=== PATIENT | female | born 1970 | race Caucasian/White ===

== ENCOUNTER → 2021-10-24 | Outpatient (CLI) | payer BC ==
--- NOTE | 2021-10-24 11:05 | Diagnostic Imaging Report ---
INDICATION: Routine screening. COMPARISON: No prior mammograms are available for comparison. TECHNIQUE: 2D and 3D bilateral screening mammography was performed with CAD. FINDINGS: Both breasts are heterogeneously dense, limiting the sensitivity of mammography. There is a density in the slightly medial left breast at posterior depth seen on the CC view which is indeterminate. This may represent fibroglandular tissue but additional views are recommended. No corresponding density on the MLO view is identified. The right breast is unremarkable. The axillae are unremarkable. There are no malignant-appearing microcalcifications. IMPRESSION: Left breast density. Additional views are recommended for further evaluation. ACR BI-RADS Category 0: Incomplete. (Needs additional imaging evaluation). Result letter will be mailed to the patient. Note: At least 10% of breast cancer is not imaged by mammography. Dictated by: Dictated on workstation # [id number]
== END ==
LOC: RAD 08:15
PROVIDERS: ATTEND Physician Assistant
DX: Z12.31 Encounter for screening mammogram for malignant neoplasm of breast (principal)
CPT/HCPCS: 77063; 77067

== ENCOUNTER 2021-11-03 05:32 | Outpatient (RCR) | payer BC ==
[~2021-11-03] VITALS: Ht 175.3 cm; Wt 80.4 kg
[2021-11-03] MEDS ORDERED: PROP60TA17 PO (15:57)
[2021-11-03] MEDS ORDERED: TIZA-186 PO (15:57)
[2021-11-03] MEDS ORDERED: DICL50TA4 PO (15:57)
[2021-11-03] MEDS ORDERED: FLUO40CA PO (15:57)
[2021-11-03] MEDS ORDERED: LORA10TA7 PO (15:57)
[2021-11-03] MEDS ORDERED: PANT40TA52 PO (15:57)
[2021-11-03] MEDS ORDERED: MV-M1TAB20 PO (15:57)
[2021-11-03] MEDS ORDERED: ASPI-999 PO (15:57)
[2021-11-03] MEDS ORDERED: GLUC-144 PO (15:57)
[2021-11-03] MEDS ORDERED: CHLO25TA22 PO (15:57)
[2021-11-03] MEDS ORDERED: FENO145T26 PO (15:57)
[2021-11-03] MEDS ORDERED: ATOR10TA66 PO (15:57)
[2021-11-03] MEDS ORDERED: FAMO-144 PO (15:57)
[2021-11-03] MEDS ORDERED: ESTR10TA9 PO (15:57)
[2021-11-03] MEDS ORDERED: ASCO1TAB42 PO (15:57)
[2021-11-03] MEDS ORDERED: NITR0.4T39 SL (15:57)
[2021-11-03] MEDS ORDERED: RT-ALBUINH INH (15:57)
== END 2021-11-03 16:29 | disposition home or self-care (01) ==
LOC: PREOP 05:32
PROVIDERS: ATTEND Surgery
DX: Z01.818 Encounter for other preprocedural examination (principal)

== ENCOUNTER 2021-11-11 08:24 | Day surgery (SDC) | payer BC ==
[~2021-11-11] VITALS: Ht 175 cm; Wt 80.4 kg
[~2021-11-11 08:24] MED LIST: ASCO1TAB42 PO; ASPI-999 PO; ATOR10TA66 PO; CHLO25TA22 PO; DICL50TA4 PO; ESTR10TA9 PO; FAMO-144 PO; FENO145T26 PO; FLUO40CA PO; GLUC-144 PO; LORA10TA7 PO; MV-M1TAB20 PO; NITR0.4T39 SL; PANT40TA52 PO; PROP60TA17 PO; RT-ALBUINH INH; TIZA-186 PO
[2021-11-11] MEDS ORDERED: LACTATED RINGERS 1,000 ML IV STA (08:26)
[2021-11-11] MEDS ORDERED: LACTATED RINGERS 1,000 ML IV ONE (08:29)
[2021-11-11] MEDS ORDERED: HURRICAINE EXT TUBE (BENZOCAINE) XX PRN (08:30)
[2021-11-11 08:50] VITALS: BP 140/88
--- NOTE | 2021-11-11 08:58 | Progress Note-Pre Operative ---
Pre-Operative Progress Note H&P Reviewed The H&P was reviewed, patient examined and no changes noted. Date Seen by Provider: Nov 11, 2021 Time Seen by Provider: 08:58 Date H&P Reviewed: Nov 11, 2021 Time H&P Reviewed: 08:58 Pre-Operative Diagnosis: screening colonoscopy, gerd SHANNA RODNEY DO Nov 11, 2021 08:58
[2021-11-11] MEDS ORDERED: PROPOFOL INJECTION 50 ML IV ONE (09:30)
[2021-11-11] MEDS ORDERED: MIDAZOLAM 2 MG/2 ML (VERSED) VIAL ONE (09:30)
[2021-11-11 10:20] VITALS: BP 115/57
--- NOTE | 2021-11-11 10:23 | Progress Note-Post Operative ---
Post-Operative Progess Note Surgeon (s)/Design Director (s) Surgeon SHANNA RODNEY DO Design Director: na Pre-Operative Diagnosis screening colonoscopy, gerd Post-Operative Diagnosis gastritis, normal colon Procedure & Operative Findings Date of Procedure 11/11/21 Procedure Performed/Findings egd c biopsies, colonoscopy Anesthesia Type per [facility] Estimated Blood Loss Estimated blood loss (mL): none Specimens/Packing Specimens Removed antrum, ge SHANNA RODNEY DO Nov 11, 2021 10:23
--- NOTE | 2021-11-11 10:24 | Discharge Inst-Simple/Standard ---
Discharge Inst-Standard Patient Instructions/Follow Up Plan of Care/Instructions/FU: 2 weeks Marge Activity as Tolerated: Yes Discharge Diet: Regular Diet SHANNA RODNEY DO Nov 11, 2021 10:24
[2021-11-11 10:25] VITALS: BP 99/61
[2021-11-11 10:45] VITALS: BP 107/55
[2021-11-11 10:53] VITALS: BP 107/55
--- NOTE | 2021-11-11 14:58 | Anesthesia-General Post-Op ---
MAC Patient Condition Mental Status/LOC: Same as Preop Cardiovascular: Satisfactory Nausea/Vomiting: Absent Respiratory: Satisfactory Pain: Controlled Complications: Absent Post Op Complications Complications None Follow Up Care/Instructions Patient Instructions None needed. Anesthesiology Discharge Order Discharge Order Patient was doing well this morning after the procedure, no complaints, stable vital signs, no apparent adverse anesthesia problems. DIANA SANDERS DO Nov 11, 2021 14:58
--- NOTE | 2021-11-11 15:16 | OPERATIVE REPORT ---
DATE OF SERVICE: 11/11/2021 PREOPERATIVE DIAGNOSIS: Screening colonoscopy and gastroesophageal reflux disease. POSTOPERATIVE DIAGNOSES: Slight gastritis, normal colon. PROCEDURE: EGD with biopsies, colonoscopy. SURGEON: Shanna Bird DO ANESTHESIA: Per MDA. ESTIMATED BLOOD LOSS: None. COMPLICATIONS: None. INDICATIONS: The patient is a 51-year-old female with GERD symptoms and needing screening colonoscopy. The patient understands risks and benefits and wishes to proceed. Consent was signed in the chart. DESCRIPTION OF PROCEDURE: The patient was taken to the endoscopy suite, placed in the left lateral recumbent position. Timeout was performed. Scope was inserted in mouth, down the esophagus, stomach and into the duodenum without difficulty. No polyps, masses or ulcerations in the duodenum. Scope was slowly retracted back into the stomach where it was further insufflated. Changes of gastritis present within the antrum. Biopsy was obtained. Scope was retroflexed noting a small hiatal hernia, no other pathology. Scope was returned to its normal position, slowly withdrawn to the distal esophagus. No polyps, masses or ulcerations. Biopsy of the GE junction was obtained. Scope was slowly retracted back until completely removed. The patient then had digital rectal exam performed. No palpable polyps, masses or ulcerations. Scope was inserted in the rectum and advanced all the way to cecum with minimal difficulty. Prep was adequate. Scope was then slowly retracted back. No polyps, masses or ulcerations within the cecum, ascending, transverse, descending and sigmoid colon. Once in the rectum, scope was retroflexed noting no other pathology. Scope was returned to its normal position, slowly withdrawn until completely removed. The patient tolerated the procedure well without any complications. She was taken to recovery room in stable condition. RECOMMENDATIONS: The patient will need repeat colonoscopy in 10 years unless family history of colon cancer, which then be 5 years. Any issues before that be seen at that time. We will continue on current medications. Await biopsy results. Job ID: [id number] DocumentID: [id number] Dictated Date: 11/11/2021 10:27:34 General Repair Mechanic Date: 11/11/2021 13:24:46 Dictated By: SHANNA BIRD DO
== END 2021-11-11 10:53 | disposition home or self-care (01) ==
LOC: ENDO 08:24
PROVIDERS: ATTEND Surgery
DX: Z12.11 Encounter for screening for malignant neoplasm of colon (principal); K29.70 Gastritis, unspecified, without bleeding; K21.9 Gastro-esophageal reflux disease without esophagitis; F17.210 Nicotine dependence, cigarettes, uncomplicated; Z79.82 Long term (current) use of aspirin

== ENCOUNTER → 2021-12-01 | Outpatient (CLI) | payer BC ==
--- NOTE | 2021-12-01 17:08 | Diagnostic Imaging Report ---
INDICATION: Left breast density. Patient presents for additional views. Correlation is made with screening study from 10/24/2021. Unilateral left 2-D and 3-D diagnostic mammography was performed. This includes spot compression CC, rolled CC as well as 90 degrees lateral views. Additional views fail to demonstrate a discrete mass. Density noted in the medial and posterior left breast appears to resolve after additional views. This most likely represent superimposed tissue. IMPRESSION: BI-RADS 0 Additional views fail to demonstrate a discrete mass. Even so, further evaluation with ultrasound is recommended will be performed today. ACR BI-RADS Category 0: Incomplete. (Needs additional imaging evaluation). Result letter will be mailed to the patient. Note: At least 10% of breast cancer is not imaged by mammography. Dictated by: Dictated on workstation # [id number]
--- NOTE | 2021-12-01 17:09 | Diagnostic Imaging Report ---
INDICATION: Left breast density. Correlation is made with diagnostic mammogram earlier the same day as well as screening mammogram from 10/24/2021. Sonographic interrogation of the medial left breast was performed. No solid or cystic masses detected. No sonographic abnormality is identified. IMPRESSION: BI-RADS Category 1 No sonographic abnormality is detected. The patient may return to routine annual screening mammography. ACR BI-RADS Category 1: Negative. Result letter will be mailed to the patient. Note: At least 10% of breast cancer is not imaged by mammography. Dictated by: Dictated on workstation # [id number]
== END ==
LOC: RAD 14:15
PROVIDERS: ATTEND Physician Assistant
DX: R92.2 Inconclusive mammogram (principal)
CPT/HCPCS: 76642; 77065; G0279

== ENCOUNTER → 2021-12-17 | Outpatient (CLI) | payer BC ==
[~2021-12-17] VITALS: Ht 175 cm; Wt 80.0 kg
[~2021-12-17] MED LIST changes: +CATHETER FLUSH 10 ML SYR IVP PRN
[2021-12-17 13:20] VITALS: BP 143/81
--- NOTE | 2021-12-17 15:33 | Cardiology Stress Test Report ---
Stress Test Report Date of Procedure/Referring: Date of Procedure: Dec 17, 2021 PCP Jose Zarate MD Admitting Physician Indications: HTN Baseline Heart Rate: 63 Baseline Blood Pressure: Blood Pressure Systolic: 143 Blood Pressure Diastolic: 81 Vital Signs Date Time Temp Pulse Resp B/P (MAP) Pulse Ox O2 Delivery O2 Flow Rate FiO2 12/17/21 13:20 61 143/81 (101) Baseline Vital Signs Vital Signs Date Time Temp Pulse Resp B/P (MAP) Pulse Ox O2 Delivery O2 Flow Rate FiO2 12/17/21 13:20 61 143/81 (101) Baseline EKG: Baseline EKG: NSR Summary: After explaining the procedure and details to the patient, she signed the consent and was brought to the stress nuclear laboratory. Patient exercised on standard Drew protocol, EKG, heart rate and blood pressure were monitored continuously, resting and stress doses of radio tracer were injected, imaging was acquired and reviewed in the short axis, horizontal long axis and vertical long axis views Patient was able to exercise for a total of 4 minutes on Drew protocol, METs 5.8 Maximum heart rate 146 Maximum blood pressure 170/85 Stress EKG, Minimal nondiagnostic changes Recovery EKG, Return to baseline TID: 0.92 SSS: 4 SDS: 4 EF: 69 Conclusion: 1. Fair exercise tolerance for a total of 4 minutes on standard Drew protocol, 5.8 METS achieving 86% of maximal expected heart rate 2. Appropriate heart rate and blood pressure response to exercise return to baseline during recovery 3. Mild reversible ischemia involving the apex and anteroapical segment 4. Normal left ventricular size, EF 69% JOSE ZARATE MD Dec 17, 2021 15:33
== END ==
LOC: CARD 11:00
PROVIDERS: ATTEND Internal Medicine Cardiovascular Disease
DX: I10 Essential (primary) hypertension (principal); I25.10 Atherosclerotic heart disease of native coronary artery without angina pectoris
CPT/HCPCS: 78452; 93017; 93306; A9502

== ENCOUNTER 2021-12-24 11:55 | Day surgery (SDC) | payer BC ==
[~2021-12-24] VITALS: Ht 175 cm; Wt 76.9 kg
[~2021-12-24 11:55] MED LIST changes: -CATHETER FLUSH 10 ML SYR IVP PRN
[2021-12-24] MEDS ORDERED: NS IV 1000 ML 1,000 ML ONE (11:58)
[2021-12-24] MEDS ORDERED: HEParin (CATH LAB) 2,000 ML IV ONE (11:58)
[2021-12-24] MEDS ORDERED: LIDOCAINE 1% INJ 20 ML VIAL ONE (11:58)
[2021-12-24] MEDS ORDERED: NS IV 1000 ML 1,000 ML IV SCH (12:00)
[2021-12-24 12:07] VITALS: BP 143/82
[2021-12-24 12:20] LABS: BILIRUBIN,URINE NEGATIVE (NEGATIVE); CLARITY,URINE CLEAR; COLOR,URINE YELLOW; GLUCOSE, URINE (UA) NEGATIVE (NEGATIVE); KETONES,URINE NEGATIVE (NEGATIVE); LEUKOCYTE ESTERASE ,URINE NEGATIVE (NEGATIVE); NITRITE,URINE NEGATIVE (NEGATIVE); PROTEIN,URINE NEGATIVE (NEGATIVE)
[2021-12-24 12:21] LABS: HEMATOCRIT 39 % (35-52); HEMOGLOBIN 12.9 g/dL (11.5-16.0); MEAN CORPUSCULAR HEMOGLOBIN 31 pg (25-34); MEAN CORPUSCULAR HGB CONC 33 g/dL (32-36); MEAN CORPUSCULAR VOLUME 94 fL (80-99); MEAN PLATELET VOLUME 10.2 fL (9.0-12.2); PLATELET COUNT 379 10^3/uL (130-400); WHITE BLOOD COUNT 8.4 10^3/uL (4.3-11.0)
--- NOTE | 2021-12-24 12:26 | Diagnostic Imaging Report ---
INDICATION: Abnormal stress test, coronary artery disease. Frontal chest obtained at 12:08 p.m. FINDINGS: Heart and mediastinal silhouette are normal in appearance. The lungs are clear. There is no pneumothorax or pleural fluid. IMPRESSION: Negative chest. Dictated by: Dictated on workstation # [id number]
[2021-12-24] MEDS ORDERED: VERAPAMIL 5 MG/2 ML (CALAN) VIAL IV ONE (12:29)
[2021-12-24] MEDS ORDERED: MIDAZOLAM 5 MG/5 ML (VERSED) VIAL ONE (12:29)
[2021-12-24] MEDS ORDERED: fentaNYL INJ 100 MCG/2 ML AMP ONE (12:29)
[2021-12-24] MEDS ORDERED: HEParin 1000 UNIT/ML (10ML VIAL) FOR BOLUS ONE (12:30)
[2021-12-24] MEDS ORDERED: NITRO DRIP 25000 MCG/D5W 250 ML IV ONE (12:30)
[2021-12-24 12:34] LABS: RBC,URINE RARE /HPF
[2021-12-24 12:35] LABS: BACTERIA,URINE MODERATE /HPF
[2021-12-24 12:39] LABS: ALANINE AMINOTRANSFERASE 35 U/L (0-55); ALBUMIN 4.6 GM/DL (3.2-4.5); ALKALINE PHOSPHATASE 60 U/L (40-136); BILIRUBIN,TOTAL 0.4 MG/DL (0.1-1.0); BUN/CREATININE RATIO 22; CALCIUM 10.3 MG/DL (8.5-10.1); CARBON DIOXIDE 27 MMOL/L (21-32); CHLORIDE 103 MMOL/L (98-107); CHOLESTEROL 314 MG/DL (< 200); CREATININE SERUM 0.85 MG/DL (0.60-1.30); GFR ESTIMATED 82; GLUCOSE 93 MG/DL (70-105); HDL CHOLESTEROL 38 MG/DL (40-60); POTASSIUM 4.2 MMOL/L (3.6-5.0); SODIUM 139 MMOL/L (135-145); TOTAL PROTEIN 7.6 GM/DL (6.4-8.2); TRIGLYCERIDES 271 MG/DL (<150); VLDL CHOLESTEROL 54 MG/DL (5-40)
[2021-12-24 12:46] LABS: INR 0.9 (0.8-1.4); PROTHROMBIN TIME PATIENT 12.9 SEC (12.2-14.7)
[2021-12-24] MEDS ORDERED: CALC-250 PO (12:56)
[2021-12-24] MEDS ORDERED: PROP80TA3 PO (12:56)
[2021-12-24] MEDS ORDERED: FLUO20CA48 PO (12:56)
[2021-12-24] MEDS ORDERED: FAMO20TA3 PO (12:56)
[2021-12-24] MEDS ORDERED: FLUT9.9S NS (12:56)
[2021-12-24] MEDS ORDERED: ESTR1TAB27 PO (12:56)
[2021-12-24] MEDS ORDERED: CNC1KV IM (12:56)
[2021-12-24] MEDS ORDERED: LISI20TA26 PO (12:56)
[2021-12-24] MEDS ORDERED: ASPI-1238 PO (12:56)
[2021-12-24] MEDS ORDERED: SUCR1TAB PO (12:56)
[2021-12-24] MEDS ORDERED: MIDAZOLAM 2 MG/2 ML (VERSED) VIAL ONE (13:13)
[2021-12-24] MEDS ORDERED: ASPIRIN 325 MG (5 GR) TABLET ONE (13:40)
[2021-12-24] MEDS ORDERED: TICAGRELOR 90 MG TABLET (BRILINTA) PO ONE (13:40)
--- NOTE | 2021-12-24 13:40 | Conscious Sedation/ASA ---
Conscious Sedation Pre-Proced Time 13:40 ASA Score 3 For ASA 3 and 4: Consider anesthesia and medical clearance. Also, for patients with a history of failed moderate sedation consider anesthesia. Airway Lungs Heart ASA score ASA 1: a normal healthy patient ASA 2: a patient with a mild systemic disease (mid diabetes, controlled hypertension, obesity x ASA 3: a patient with a severe systemic disease that limits activity (angina, COPD, prior Myocardial infarction) ASA 4: a patient with an incapacitating disease that is a constant threat to life (CHF, renal failure) ASA 5: a moribund patient not expected to survive 24 hrs. (ruptured aneurysm) ASA 6: a declared brain- patient whose organs are being harvested. For emergent operations, add the letter E after the classification Mallampati Classification Grade 3 Sedation Plan Analgesia, Amnesia, Plan communicated to team members, Discussed options with patient/fam, Discussed risks with patient/fam The patient is an appropriate candidate to undergo the planned procedure, sedation, and anesthesia. The patient immediately re-assessed prior to indication. JOSE FITZPATRICK MD Dec 24, 2021 13:40
[2021-12-24] MEDS ORDERED: FAMOTIDINE 20 MG (PEPCID) TABLET PO PRN (13:45)
[2021-12-24] MEDS ORDERED: PATIENT MAY USE OWN MEDS, ALL PO SCH (13:45)
[2021-12-24] MEDS ORDERED: RT-ALBUTEROL SULF 2.5 MG/3 ML PRE-MIX VIAL INH PRN (13:45)
--- NOTE | 2021-12-24 13:49 | Cardiac Cath Report ---
Cardiac Cath Report Physician (s)/Director Of Instrumental Music (s) Physician JOSE FITZPATRICK MD Pre-Procedure Diagnosis Pre-Procedure Diagnosis: Coronary artery disease Post-Procedure Note Procedure Start Date: Dec 24, 2021 Name of Procedure: Left heart catheterization Stenting to the LAD Findings/Procedure Note PROCEDURE NOTE: 51-year-old lady with history of hypertension, hyperlipidemia, has been having chest pain, had an abnormal stress test, scheduled for cardiac catheterization possible PTCA. After explaining the procedure to the patient, all pros and cons were explained, all questions were answered. The patient signed the consent and then she was placed on the cardiac catheterization laboratory. Groin was prepped SL fashion local anesthesia was used. Attempt to access the right radial artery has failed, after multiple attempts I aborted and proceeded with the groin access. Sheath was placed in the right femoral artery, combination of right and left Francheska catheter were engaged in the right and left coronary system, Francheska right catheter prolapsed to the left ventricle and pressure was measured during pullback. Patient has severe stenosis in the proximal LAD/subtotal occlusion 99% stenosis. 5000 units of heparin were given, EBU 3.5 guide was advanced, BMW wire was advanced and parked distally. Predilatation with 2.5 x 20 mm balloon then I proceeded with deployment of aaron point 2.75 x 23 mm stent expanded to 2.88 mm with excellent results. At the end of the procedure the sheath was removed. Closure device was deployed FINDINGS: Hemodynamics LV 107/12, end-diastolic pressure of 12 Aorta 110/59 mean of 80 ANATOMY: Left Main is free of obstructive disease Left Anterior Descending has ulcerated plaque with 99% stenosis in the proximal to mid LAD, successful balloon angioplasty then deployment of aaron point stent 2.75 x 23 mm expanded to 2.88 mm under 15 olivier Left Circumflex is moderate in size, mild disease nonobstructive disease Right Coronary Artery is small to moderate in size dominant artery with mild dis ease LV Gram was not done, pressure was measured CONCLUSION: 1. Ulcerated plaque with 99% stenosis in the proximal to mid LAD, successful balloon angioplasty and stenting using aaron point stent 2.75 x 23 mm expanded to 2.88 millimeters with excellent results 2. Otherwise mild coronary artery disease nonobstructive disease 3. Normal left ventricular end-diastolic pressure DISCUSSION AND RECOMMENDATION: Patient was bolused with aspirin and Brilinta. We will continue maximizing medical therapy. Adding Lipitor 20 mg daily Anesthesia Type: Conscious Sedation Estimated blood loss (mL): 25 ml Contrast Amount: 92 ml Total Radiation Dose: 358 mGy Post-Procedure Diagnosis Post-operative diagnosis: Chest pain Coronary artery disease Hypertension Hyperlipidemia JOSE FITZPATRICK MD Dec 24, 2021 13:49
[2021-12-24] MEDS: NITROGLYCERIN 0.4 MG SL TABS BTL 25'S SL PRN ×2 (14:57→18:25)
[2021-12-24] MEDS ORDERED: ISOSORBIDE MONONITRATE 30 MG (IMDUR) TAB PO NR (15:00)
[2021-12-24] MEDS ORDERED: PANTOPRAZOLE 40 MG (PROTONIX) TAB PO NR (15:15)
[2021-12-24] MEDS: NS IV 1000 ML 1,000 ML IV SCH ×2 (15:29→22:19)
[2021-12-24 15:31] VITALS: BP 98/60
[2021-12-24] MEDS ORDERED: SUCRALFATE 1 GM (CARAFATE) TAB PO SCH (18:00)
[2021-12-24 19:18] VITALS: BP 99/53
[2021-12-24] MEDS ORDERED: FLUoxetine HCL 20 MG (PROzac) CAP PO SCH ×2 (21:00)
[2021-12-24] MEDS ORDERED: LORATADINE (CLARITIN) 10 MG TAB PO SCH (21:00)
[2021-12-24] MEDS ORDERED: NON-FORMULARY MEDICATION 1 EA EA (Propranolol HCl 80 MG) PO SCH (21:00)
[2021-12-24] MEDS ORDERED: PANTOPRAZOLE 40 MG (PROTONIX) TAB PO SCH (21:00)
[2021-12-24] MEDS ORDERED: FENOFIBRATE 134 MG (LOFIBRA) CAPSULE PO SCH (21:00)
[2021-12-24] MEDS ORDERED: NON-FORMULARY MEDICATION 1 EA EA (Fenofibrate Nanocrystallized (Fenofibrate) 145 MG) PO SCH (21:00)
[2021-12-24] MEDS ORDERED: NON-FORMULARY MEDICATION 1 EA EA (Diclofenac Potassium 50 MG) PO SCH (21:00)
[2021-12-24] MEDS ORDERED: NON-FORMULARY MEDICATION 1 EA EA (Fluoxetine HCl 40 MG) PO SCH (21:00)
[2021-12-24] MEDS ORDERED: NON-FORMULARY MEDICATION 1 EA EA (Propranolol HCl 60 MG) PO SCH (21:00)
[2021-12-24] MEDS: PROPRANOLOL 20 MG (INDERAL) TABLET PO SCH (21:07)
[2021-12-24] MEDS: TICAGRELOR 90 MG TABLET (BRILINTA) PO SCH (21:07)
[2021-12-25] MEDS ORDERED: ACET325T38 PO (02:03)
[2021-12-25] MEDS ORDERED: ACETAMINOPHEN 325 MG TABLET PO PRN (02:15)
[2021-12-25 04:43] LABS: HEMATOCRIT 31 % (35-52); HEMOGLOBIN 10.1 g/dL (11.5-16.0); MEAN CORPUSCULAR HEMOGLOBIN 31 pg (25-34); MEAN CORPUSCULAR HGB CONC 33 g/dL (32-36); MEAN CORPUSCULAR VOLUME 94 fL (80-99); MEAN PLATELET VOLUME 10.3 fL (9.0-12.2); PLATELET COUNT 259 10^3/uL (130-400); WHITE BLOOD COUNT 6.9 10^3/uL (4.3-11.0)
[2021-12-25 05:17] LABS: CALCIUM 8.9 MG/DL (8.5-10.1); CREATININE SERUM 0.73 MG/DL (0.60-1.30); POTASSIUM 3.9 MMOL/L (3.6-5.0)
[2021-12-25] MEDS ORDERED: ATOR20TA66 PO (06:19)
[2021-12-25] MEDS ORDERED: TICA90TA PO (06:19)
--- NOTE | 2021-12-25 06:19 | Discharge Inst-Post CATH ---
Discharge Inst-CATH/EP Problems Reviewed?: Yes Post Cardiac Cath/EP D/C Inst Follow Up/Plan Appointment with Dr Zarate in 2-4 weeks <b>CARDIAC CATH/EP PROCEDURE DISCHARGE INSTRUCTIONS</b> ACTIVITY * Go Home directly and rest. * Limit activity of the leg (or wrist if it was used) for 7 days including aerobics, swimming, jogging, bicycling, etc. * Restrict stair-climbing for 7 days if possible, if not, climb up with your non-cath leg, then bring together on the same step. * Avoid lifting, pushing, pulling or excessive movement of the affected extremity for 7 days. * Customary sexual activity may be resumed after 2 days-use caution not to use a position that strains or causes pain to the affected extremity. * No driving for 24 hours. * NO SMOKING. * Avoid straining for bowel movements for 7 days. * Gentle walking on level ground is allowed. * Returning to work will depend on the type of procedure and the results. Your doctor will discuss this with you. CALL YOUR DOCTOR FOR ANY OF THE FOLLOWING: *If bleeding from the puncture site occurs- Apply gentle pressure to site with clean cloth and call your doctor or EMS. * If a knot or lump forms under the skin, increases in size, or causes pain. * If bruising appears to be worsening or moving further down your leg instead of disappearing. * Temperature above 101 F. CARE OF YOUR GROIN INCISION; * Bruising or purple discoloration of the skin near the puncture site is common. * You may shower only, no bathtub bathing for 5 days. Be careful to avoid slipping as your leg may feel stiff. * If a closure device was used on your femoral artery, please see the attached guide regarding care of the device and your leg. * Leave dressing on FOR 24 hours. CARE OF YOUR WRIST INCISION; * Bruising or purple discoloration of the skin near the puncture site is common. * You may shower. * DO NOT submerge wrist. * Leave dressing on FOR 24 hours. JOSE ZARATE MD Dec 25, 2021 06:19
[2021-12-25] MEDS: TICAGRELOR 90 MG TABLET (BRILINTA) PO SCH (08:12)
[2021-12-25] MEDS: PROPRANOLOL 20 MG (INDERAL) TABLET PO SCH (08:12)
--- NOTE | 2021-12-25 08:19 | Cardiology Progress Note ---
Subjective Date Seen by Provider: Dec 25, 2021 Time Seen by Provider: 08:18 Subjective/Events-last exam Patient was seen at bedside laying down comfortably, feeling better. No further episodes of chest pain were reported Review of Systems General: No Chills, No Night Sweats, No Fatigue, No Malaise, No Appetite, No Other HEENT: No Head Aches, No Visual Changes, No Eye Pain, No Ear Pain, No Dysphasia, No Sinus Congestion, No Post Nasal Drip, No Sore Throat, No Other Pulmonary: No Dyspnea, No Cough, No Pleuritic Chest Pain, No Other Cardiovascular: No: Chest Pain, Palpitations, Orthopnea, Paroxysmal Noc. Dyspnea, Edema, Lt Headedness, Other Objective-Cardiology Exam Last Set of Vital Signs Vital Signs 12/25/21 12/25/21 07:11 07:39 Temp 36.4 Pulse 50 Resp 10 B/P (MAP) 124/80 Pulse Ox 97 O2 Delivery Room Air O2 Flow Rate 0.00 I&O Intake and Output 12/25/21 00:00 Intake Total 300 ml Balance 300 ml Intake Oral 300 ml # Voids 2 Daily Weight Change No General: Alert, Oriented X3, Cooperative HEENT: Atraumatic, PERRLA Neck: Supple, No JVD, No Thyromegaly Lungs: Clear to Auscultation, Normal Air Movement Heart: Regular Rate, Normal S1, Normal S2, No Murmurs Abdomen: Normal Bowel Sounds, Soft, No Tenderness, No Hepatosplenomegaly, No Masses Extremities: No Clubbing, No Cyanosis, No Edema, Normal Pulses, No Tenderness/Swelling Skin: No Rashes, No Breakdown, No Significant Lesion Neuro: Normal Gait, Normal Speech, Strength at 5/5 X4 Ext, Normal Tone, Se nsation Intact Psych/Mental Status: Mental Status NL, Mood NL Results Lab Laboratory Tests 12/24/21 12:06 12/25/21 04:35 A/P-Cardiology Admission Diagnosis Chest pain Coronary artery disease Hypertension Hyperlipidemia Assessment/Plan Chest pain nonspecific etiology, coronary artery disease Coronary artery disease status post cardiac catheterization with stenting of the LAD using 2.75 x 23 mm aaron point stent with excellent results. Has mild to moderate disease in the distal LAD and right coronary artery. Hypertension, monitor blood pressure Hyperlipidemia, started on Lipitor 20 mg daily Patient was educated in length about the importance of taking aspirin and Brilinta and statin. JOSE FITZPATRICK MD Dec 25, 2021 08:19
[2021-12-25] MEDS ORDERED: NITR0.4T42 SL (08:20)
[2021-12-25] MEDS ORDERED: ASPIRIN E.C. 81 MG (ECOTRIN) TAB PO SCH (09:00)
[2021-12-25] MEDS ORDERED: FLUTICASONE NASAL SPRAY (FLONASE) 16 GM BTL NS SCH (09:00)
[2021-12-25] MEDS ORDERED: lisINopril 20 MG (PRINIVIL) TABLET PO SCH (09:00)
== END 2021-12-25 08:24 | disposition home or self-care (01) ==
LOC: CATH 11:55 → CSD 14:05 → CATH 12-25 08:24
PROVIDERS: ATTEND Internal Medicine Cardiovascular Disease
DX: I25.10 Atherosclerotic heart disease of native coronary artery without angina pectoris (principal); I10 Essential (primary) hypertension; G43.909 Migraine, unspecified, not intractable, without status migrainosus; K21.9 Gastro-esophageal reflux disease without esophagitis; D58.0 Hereditary spherocytosis; M48.00 Spinal stenosis, site unspecified; I65.23 Occlusion and stenosis of bilateral carotid arteries; E78.2 Mixed hyperlipidemia; F17.210 Nicotine dependence, cigarettes, uncomplicated; Z79.899 Other long term (current) drug therapy
CPT/HCPCS: 71045; 80048; 80053; 80061; 81000; 85027 ×2; 85347; 85610; 85730; 87081; 93005 ×2; 93458; C1725; C1760; C1769; C1874; C1887; C1894; C9600; 36415

== ENCOUNTER 2022-02-25 14:54 | Outpatient (RCR) | payer BC ==
[~2022-02-25 14:54] MED LIST changes: +ACET325T38 PO; +ASPI-1238 PO; +ATOR20TA66 PO; +CALC-250 PO; +CNC1KV IM; +ESTR1TAB27 PO; +FAMO20TA3 PO; +FLUO20CA48 PO; +FLUT9.9S NS; +LISI20TA26 PO; +NITR0.4T42 SL; +PROP80TA3 PO; +SUCR1TAB PO; +TICA90TA PO
== END 2022-02-26 | disposition home or self-care (01) ==
LOC: CR 14:54
PROVIDERS: ATTEND Internal Medicine Cardiovascular Disease
DX: Z29.8 Encounter for other specified prophylactic measures (principal); Z95.5 Presence of coronary angioplasty implant and graft
CPT/HCPCS: 93798

== ENCOUNTER 2022-03-16 13:46 | Outpatient (RCR) | payer BC | END 2022-03-29 | disposition home or self-care (01) | LOC: CR 13:46 | PROVIDERS: ATTEND Internal Medicine Cardiovascular Disease | DX: Z29.8 Encounter for other specified prophylactic measures (principal); R00.1 Bradycardia, unspecified | CPT/HCPCS: 93798 ==

== ENCOUNTER 2022-03-30 06:27 | Outpatient (RCR) | payer BC | END 2022-04-29 | LOC: CR 06:27 | PROVIDERS: ATTEND Internal Medicine Cardiovascular Disease | DX: Z29.8 Encounter for other specified prophylactic measures (principal); R00.1 Bradycardia, unspecified ==